=== PATIENT | female | born 1950 | race Caucasian/White ===

== ENCOUNTER 2020-09-11 07:41 | Outpatient (CLI) | payer MEDICARE, BC | END 2020-09-11 07:42 | disposition home or self-care (01) | LOC: PET 07:41 | PROVIDERS: ATTEND Internal Medicine Hematology & Oncology | DX: C50.919 Malignant neoplasm of unspecified site of unspecified female breast (principal); C79.51 Secondary malignant neoplasm of bone | CPT/HCPCS: 78815; A9552 ==

== ENCOUNTER 2020-12-27 08:57 | Outpatient (CLI) | payer MEDICARE, BC | END 2020-12-27 08:58 | disposition home or self-care (01) | LOC: PET 08:57 | PROVIDERS: ATTEND Internal Medicine Hematology & Oncology | DX: C79.51 Secondary malignant neoplasm of bone (principal); C50.911 Malignant neoplasm of unspecified site of right female breast | CPT/HCPCS: 78815; A9552 ==

== ENCOUNTER 2021-03-18 11:26 | Outpatient (CLI) | payer MEDICARE, BC ==
[~2021-03-18 11:26] MED LIST: Magnevist 469MG/ML 20 ML VIAL ONE
== END 2021-03-18 11:27 | disposition home or self-care (01) ==
LOC: SCSMRI 11:26 → BICMRI 11:27
PROVIDERS: ATTEND Internal Medicine Hematology & Oncology
DX: M54.50 Low back pain, unspecified (principal); C50.911 Malignant neoplasm of unspecified site of right female breast; C43.9 Malignant melanoma of skin, unspecified; C79.51 Secondary malignant neoplasm of bone; M47.816 Spondylosis without myelopathy or radiculopathy, lumbar region
CPT/HCPCS: 72158

== ENCOUNTER 2021-04-04 11:45 | Outpatient (CLI) | payer MEDICARE, BC | END 2021-04-04 11:46 | disposition home or self-care (01) | LOC: PET 11:45 | PROVIDERS: ATTEND Internal Medicine Hematology & Oncology | DX: C50.911 Malignant neoplasm of unspecified site of right female breast (principal); C79.9 Secondary malignant neoplasm of unspecified site | CPT/HCPCS: 78815; A9552 ==

== ENCOUNTER 2021-07-30 11:45 | Outpatient (CLI) | payer MEDICARE, BC | END 2021-07-30 11:46 | disposition home or self-care (01) | LOC: PET 11:45 | PROVIDERS: ATTEND Internal Medicine Hematology & Oncology | DX: C50.911 Malignant neoplasm of unspecified site of right female breast (principal); C79.51 Secondary malignant neoplasm of bone | CPT/HCPCS: 78815; A9552 ==

== ENCOUNTER 2021-11-22 08:00 | Outpatient (CLI) | payer MEDICARE, BC | END 2021-11-22 08:01 | disposition home or self-care (01) | LOC: PET 08:00 | PROVIDERS: ATTEND Internal Medicine Hematology & Oncology | DX: C50.911 Malignant neoplasm of unspecified site of right female breast (principal); C79.51 Secondary malignant neoplasm of bone; R93.7 Abnormal findings on diagnostic imaging of other parts of musculoskeletal system | CPT/HCPCS: 78815; A9552 ==

== ENCOUNTER 2021-12-11 10:02 | Outpatient (CLI) | payer MEDICARE, BC | END 2021-12-11 10:03 | disposition home or self-care (01) | LOC: BICRAD 10:02 | PROVIDERS: ATTEND Internal Medicine Hematology & Oncology | DX: C50.911 Malignant neoplasm of unspecified site of right female breast (principal); C43.9 Malignant melanoma of skin, unspecified; C79.51 Secondary malignant neoplasm of bone; D70.8 Other neutropenia; S22.31XA Fracture of one rib, right side, initial encounter for closed fracture ==

== ENCOUNTER 2021-12-24 07:26 | Outpatient (CLI) | payer MEDICARE, BC ==
[2021-12-24] MEDS ORDERED: Iopamidol 370 76% 100 ML VIAL ONE (09:49)
== END 2021-12-24 07:27 | disposition home or self-care (01) ==
LOC: CT 07:26
PROVIDERS: ATTEND Internal Medicine Hematology & Oncology
DX: C50.911 Malignant neoplasm of unspecified site of right female breast (principal); C43.9 Malignant melanoma of skin, unspecified; C79.51 Secondary malignant neoplasm of bone; D70.8 Other neutropenia
CPT/HCPCS: 70470; 82565; Q9967

== ENCOUNTER 2022-01-23 10:15 | Outpatient (CLI) | payer MEDICARE, BC | END 2022-01-23 10:16 | disposition home or self-care (01) | LOC: PET 10:15 | PROVIDERS: ATTEND Internal Medicine Hematology & Oncology | DX: C50.911 Malignant neoplasm of unspecified site of right female breast (principal); C79.51 Secondary malignant neoplasm of bone | CPT/HCPCS: 78815; A9552 ==

== ENCOUNTER 2022-02-06 09:38 | Day surgery (SDC) | payer MEDICARE, BC ==
[2022-02-06] MEDS ORDERED: diphenhydrAMINE 25 MG CAP ONE (10:44)
[2022-02-06] MEDS ORDERED: Acetaminophen 500 MG TAB ONE (10:44)
[2022-02-06] MEDS ORDERED: Acetaminophen 500 MG TAB PO SCH (10:45)
[2022-02-06] MEDS ORDERED: diphenhydrAMINE 25 MG CAP PO SCH (10:45)
[2022-02-06 15:33] VITALS: BP 137/67; TEMP 98.2
== END 2022-02-06 15:34 | disposition home or self-care (01) ==
LOC: ONC/OP 09:38
PROVIDERS: ATTEND Internal Medicine Hematology & Oncology
PROC: 30233N1 Transfusion of Nonautologous Red Blood Cells into Peripheral Vein, Percutaneous Approach (ICD-10-PCS; principal; 2022-02-06)
DX: D64.9 Anemia, unspecified (principal); D69.6 Thrombocytopenia, unspecified; Z88.2 Allergy status to sulfonamides; Z88.3 Allergy status to other anti-infective agents; Z88.5 Allergy status to narcotic agent; Z91.040 Latex allergy status
CPT/HCPCS: 36430; 86850; 86900; 86901; P9016

== ENCOUNTER 2022-02-25 09:02 | Day surgery (SDC) | payer MEDICARE, BC ==
[2022-02-25] MEDS ORDERED: Acetaminophen 500 MG TAB ONE (09:43)
[2022-02-25] MEDS ORDERED: diphenhydrAMINE 25 MG CAP ONE (09:44)
[2022-02-25 14:17] VITALS: BP 137/69; TEMP 97.9
== END 2022-02-25 12:40 | disposition home or self-care (01) ==
LOC: ONC/OP 09:02
PROVIDERS: ATTEND Internal Medicine Hematology & Oncology
PROC: 30233N0 Transfusion of Autologous Red Blood Cells into Peripheral Vein, Percutaneous Approach (ICD-10-PCS; principal; 2022-02-25)
DX: D64.9 Anemia, unspecified (principal); D69.6 Thrombocytopenia, unspecified; Z88.2 Allergy status to sulfonamides; Z88.5 Allergy status to narcotic agent; Z88.8 Allergy status to other drugs, medicaments and biological substances; Z91.040 Latex allergy status
CPT/HCPCS: 36430; 86850; 86900; 86901; P9016

== ENCOUNTER 2022-03-07 14:11 | Outpatient (CLI) | payer MEDICARE, BC ==
[2022-03-07 15:46] LABS: Anion Gap 14 mmol/L (10-20); BUN (Urea Nitrogen) 13 mg/dL (9.8-20.1); Calc. Creatinine Clearance 0 mL/min (70-130); Calcium 8.4 mg/dL (7.8-10.44); Carbon Dioxide 25 mmol/L (23-31); Chloride 102 mmol/L (98-107); Estimated GFR 91; Glucose 100 mg/dL (83-110); Potassium 3.2 mmol/L (3.5-5.1); Sodium 138 mmol/L (136-145)
[2022-03-07 16:07] LABS: Mean Corpuscular HGB CONC 32.1 g/dL (32.0-36.0); Mean Corpuscular Hemoglobin 32.3 pg (27.0-33.0); Mean Corpuscular Volume 100.4 fl (81.6-98.3); Mean Platelet Volume 10.9 fl (7.4-10.4); Platelet Count 114 10x3/uL (150-450); RBC Distribution Width 21.5 % (11.5-14.5); Red Blood Cell (RBC) Count 2.48 10x6/uL (3.90-5.03); White Blood Cell (WBC) Count 7.6 10x3/uL (3.5-10.5)
[2022-03-07 16:10] LABS: MDiff Complete? YES
[2022-03-07 17:46] LABS: Band 5 % (5-11); Lymphocytes 22 % (21-51); Metamyelocyte 1 % (0-0); Monocytes 15 % (0-10); Neutrophil 54 % (42-75); Nucleated RBC 2 % (0)
[2022-03-07 17:49] LABS: Myelocyte 2 % (0-0); Reactive Lymphocytes 1 % (0-10)
[2022-03-07 17:50] LABS: Platelet Morphology Comment Appears Decreased
== END 2022-03-07 14:12 | disposition home or self-care (01) ==
LOC: LABBT 14:11
PROVIDERS: ATTEND Specialist
DX: Z01.812 Encounter for preprocedural laboratory examination (principal); C50.919 Malignant neoplasm of unspecified site of unspecified female breast
CPT/HCPCS: 80048; 85025; 93005; 93010

== ENCOUNTER 2022-03-11 05:57 | Day surgery (SDC) | payer MEDICARE, BC ==
[2022-03-06 09:47] VITALS: BMI 29.9
[2022-03-11] MEDS ORDERED: Acetaminophen 500 MG TAB ONE (06:15)
[2022-03-11] MEDS ORDERED: Sodium Chloride 0.9% 100 ML ONE (06:15)
[2022-03-11] MEDS ORDERED: Ketorolac Tromethamine 30 MG/ML VIAL ONE (06:15)
[2022-03-11] MEDS ORDERED: CEFAZOLIN 2 GM VIAL ONE (06:15)
[2022-03-11] MEDS ORDERED: PROPOFOL 20 ML ONE (06:34)
[2022-03-11] MEDS ORDERED: Lidocaine 1% (PF) 30 ML VIAL ONE (06:48)
[2022-03-11] MEDS ORDERED: Bupivacaine/Epinephrine 0.25% 30 ML VIAL ONE (06:48)
[2022-03-11] MEDS ORDERED: Lidocaine 1% PF 5 ML VIAL ONE (07:38)
[2022-03-11] MEDS ORDERED: PROPOFOL 200 MG/20 ML VIAL ONE (07:38)
[2022-03-11] MEDS ORDERED: Dexamethasone 20 MG/5 ML VIAL ONE (07:38)
[2022-03-11] MEDS ORDERED: Ondansetron PF 4 MG/2 ML Vial ONE (07:38)
== END 2022-03-11 08:55 | disposition home or self-care (01) ==
LOC: SDC 05:57
PROVIDERS: ATTEND Specialist
PROC: 0JH60WZ Insertion of Totally Implantable Vascular Access Device into Chest Subcutaneous Tissue and Fascia, Open Approach (ICD-10-PCS; principal; 2022-03-11)
PROC: 02HV33Z Insertion of Infusion Device into Superior Vena Cava, Percutaneous Approach (ICD-10-PCS; 2022-03-11)
DX: C50.919 Malignant neoplasm of unspecified site of unspecified female breast (principal); C79.51 Secondary malignant neoplasm of bone; I10 Essential (primary) hypertension; M10.9 Gout, unspecified; Z79.52 Long term (current) use of systemic steroids; Z79.899 Other long term (current) drug therapy; Z88.2 Allergy status to sulfonamides; Z88.5 Allergy status to narcotic agent; Z88.8 Allergy status to other drugs, medicaments and biological substances; Z91.040 Latex allergy status; Z92.3 Personal history of irradiation
CPT/HCPCS: 71045; C1788; J1100; J1642; J1885; J2001; J2405; J2704; J3490

== ENCOUNTER 2022-04-02 10:48 | Day surgery (SDC) | payer MEDICARE, BC ==
[2022-04-02] MEDS ORDERED: Acetaminophen 500 MG TAB ONE (10:55)
[2022-04-02] MEDS ORDERED: diphenhydrAMINE 25 MG CAP ONE (10:55)
[2022-04-02] MEDS ORDERED: Acetaminophen 500 MG TAB PO SCH (11:30)
[2022-04-02] MEDS ORDERED: diphenhydrAMINE 25 MG CAP PO SCH (11:30)
[2022-04-02 18:10] VITALS: BP 143/69; TEMP 98.1
== END 2022-04-02 17:45 | disposition home or self-care (01) ==
LOC: ONC/OP 10:48
PROVIDERS: ATTEND Internal Medicine Hematology & Oncology
PROC: 30233N1 Transfusion of Nonautologous Red Blood Cells into Peripheral Vein, Percutaneous Approach (ICD-10-PCS; principal; 2022-04-02)
DX: D64.9 Anemia, unspecified (principal); D69.6 Thrombocytopenia, unspecified; Z88.2 Allergy status to sulfonamides; Z88.3 Allergy status to other anti-infective agents; Z88.5 Allergy status to narcotic agent; Z91.040 Latex allergy status; C50.911 Malignant neoplasm of unspecified site of right female breast; C43.9 Malignant melanoma of skin, unspecified; C79.51 Secondary malignant neoplasm of bone; D70.8 Other neutropenia; D51.9 Vitamin B12 deficiency anemia, unspecified
CPT/HCPCS: 36415; 36430; 86300; 86850; 86900; 86901; P9016

== ENCOUNTER 2022-05-15 11:00 | Outpatient (CLI) | payer MEDICARE, BC | END 2022-05-15 11:01 | disposition home or self-care (01) | LOC: PET 11:00 | PROVIDERS: ATTEND Internal Medicine Hematology & Oncology | DX: C79.51 Secondary malignant neoplasm of bone (principal); C50.911 Malignant neoplasm of unspecified site of right female breast | CPT/HCPCS: 78815; A9552 ==

== ENCOUNTER 2022-08-19 11:00 | Outpatient (CLI) | payer MEDICARE, BC | END 2022-08-19 11:01 | disposition home or self-care (01) | LOC: PET 11:00 | PROVIDERS: ATTEND Internal Medicine Hematology & Oncology | DX: C50.911 Malignant neoplasm of unspecified site of right female breast (principal); C79.51 Secondary malignant neoplasm of bone | CPT/HCPCS: 78815; A9552 ==

== ENCOUNTER 2022-08-27 08:28 | Outpatient (CLI) | payer MEDICARE, BC | END 2022-08-27 08:29 | disposition home or self-care (01) | LOC: SCSMRI 08:28 | PROVIDERS: ATTEND Internal Medicine Hematology & Oncology | DX: C50.911 Malignant neoplasm of unspecified site of right female breast (principal); C79.51 Secondary malignant neoplasm of bone; C78.7 Secondary malignant neoplasm of liver and intrahepatic bile duct | CPT/HCPCS: 74183 ==

== ENCOUNTER → 2023-03-04 | Outpatient (CLI) | payer MEDICARE, BC | LOC: PET 11:00 | PROVIDERS: ATTEND Internal Medicine Hematology & Oncology | DX: C50.911 Malignant neoplasm of unspecified site of right female breast (principal); C79.51 Secondary malignant neoplasm of bone | CPT/HCPCS: 78815; A9552 ==